=== PATIENT | female | born 1950 | race Caucasian/White ===

== ENCOUNTER → 2016-11-28 | Outpatient (REF) | payer MEDICARE, OTHER ==
[~2016-11-28] MED LIST: BIOT2500 PO; CENTTAB47 PO; COUM2.5T11 PO; FIBE625T PO; FLUTISP; GLUC750T22 PO; PERC5TAB6 PO; SIMV20TA2 PO; TRAM50TA2 PO; TYLE325T5 PO; VITA10006 PO
== END | disposition home or self-care (01) ==
LOC: M LAB REF 11:47
PROVIDERS: ATTEND Physician Assistant
DX: J02.9 Acute pharyngitis, unspecified (principal)

== ENCOUNTER → 2016-12-09 | Outpatient (REF) | payer MEDICARE, OTHER ==
[2016-12-11 09:03] LABS: THYROID PEROXIDASE ANTIBODY < 28.0 U/ML (<60.0)
== END | disposition home or self-care (01) ==
LOC: M LAB REF 16:36
PROVIDERS: ATTEND Nurse Practitioner Family
DX: E03.9 Hypothyroidism, unspecified (principal)

== ENCOUNTER → 2016-12-18 | Outpatient (CLI) | payer MEDICARE, OTHER ==
[2016-12-18 17:28] LABS: FREE T4 2.46 NG/DL (0.76-1.46)
== END | disposition home or self-care (01) ==
LOC: M LAB 16:14
PROVIDERS: ATTEND Physician Assistant Medical
DX: E03.9 Hypothyroidism, unspecified (principal)

== ENCOUNTER → 2016-12-23 | Outpatient (CLI) | payer MEDICARE, OTHER ==
--- NOTE | 2016-12-24 13:56 | REP ---
Radionuclide thyroid uptake and thyroid scan: Thyroid uptake: The two hour uptake is 1.33%. The 24 hour uptake is 0.38%. These values are markedly below the normal range . Normal range: 2 hours 6-12%, 24 hours, 25-35). Because of the markedly decreased thyroid uptake. Thyroid gland imaging is not possible. Signed by Km Sylvester MD 12/24/2016 01:47 P
== END | disposition home or self-care (01) ==
LOC: M RAD 12:20
PROVIDERS: ATTEND Physician Assistant Medical
DX: E05.00 Thyrotoxicosis with diffuse goiter without thyrotoxic crisis or storm (principal)
CPT/HCPCS: 78012; A9516

== ENCOUNTER → 2017-02-27 | Outpatient (REF) | payer MEDICARE, OTHER ==
[2017-02-27 13:08] LABS: CALCIUM LEVEL 8.6 MG/DL (8.8-10.2); FREE T4 0.87 NG/DL (0.76-1.46)
== END ==
LOC: M LABDRAW1 11:36
PROVIDERS: ATTEND Physician Assistant Medical
DX: M81.0 Age-related osteoporosis without current pathological fracture (principal); E06.0 Acute thyroiditis

== ENCOUNTER → 2017-03-18 | Outpatient (REF) | payer MEDICARE, OTHER | LOC: M LAB REF 16:09 | PROVIDERS: ATTEND Family Medicine | DX: R31.9 Hematuria, unspecified (principal) ==

== ENCOUNTER → 2017-04-11 | Outpatient (CLI) | payer MEDICARE, OTHER ==
[2017-04-11 11:03] LABS: ANION GAP 5 MEQ/L (8-16); BLOOD UREA NITROGEN 20 MG/DL (7-18); CALCIUM LEVEL 8.7 MG/DL (8.8-10.2); CARBON DIOXIDE LEVEL 32 MEQ/L (21-32); CHLORIDE LEVEL 104 MEQ/L (98-107); CREATININE FOR GFR 0.91 MG/DL (0.55-1.02); GLOMERULAR FILTRATION RATE > 60.0 (>45); GLUCOSE, FASTING 87 MG/DL (80-110); POTASSIUM SERUM 4.1 MEQ/L (3.5-5.1); SODIUM LEVEL 141 MEQ/L (136-145)
== END ==
LOC: M LAB 09:57
PROVIDERS: ATTEND Nurse Practitioner Family
DX: R31.9 Hematuria, unspecified (principal)

== ENCOUNTER → 2017-04-22 | Outpatient (CLI) | payer MEDICARE, OTHER ==
[~2017-04-22] MED LIST changes: +ISOVUE-370 76% 100ML VIAL (Q9967) As Ordered ONE
--- NOTE | 2017-04-22 16:49 | REP ---
CT ABDOMEN: REASON: Hematuria. CONTRAST: 100 mL Isovue-370 The precontrast enhanced portion of the examination shows hepatic and splenic densities to be within normal limits. There is no nephroureterolithiasis, hydronephrosis, or hydroureter. There are no urinary bladder calcifications, however, spray artifact arising from a left hip prosthesis obscures multiple pelvic images. Multiple pelvic surgical clips are seen on the right. The contrast enhanced portion shows the liver, gallbladder, spleen, pancreas, adrenal glands to be within normal limits. There are multiple bilateral nonenhancing simple renal cysts, some too small for precise CT characterization but none showing any form of septation or mural nodular enhancement. There is no free fluid or free in the abdomen or pelvis. The intraabdominal and intrapelvic bowel loops and their mesenteries are within normal limits. CT urography without MIP images show normal opacification of the ureters to the level of the sacroiliac joints where the contrast enhanced ureters ceased to be imaged. Contrast is seen filling the urinary bladder. The post contrast enhanced images show no evidence of hydronephrosis. There is malrotation of the right kidney. Bone window technique throughout the exam shows the osseous structures to be demineralized with spinal degenerative changes. There is a healing right inferior pubic ramus fracture and a healing left pubic symphysis fracture. Callus formation is seen involving the left inferior pubic ramus without a definitive lucency suggesting a healing stress fracture. There is evidence of a healing right acetabular and superior pubic ramus fracture. There is evidence of a healing bilateral sacral fracture, particularly affecting the sacralia. IMPRESSION: 1. Multiple bilateral renal cysts. 2. Nonvisualization of the ureters in total as described above but without evidence of an intraureteral filling defect or hydronephrosis. Consider further evaluation with retrograde ureterography if clinically relevant. 3. Multiple bilateral pelvic fractures which need clinical correlation and followup. 4. Exam limitations and other findings as described above. Signed by Alonso Allen DO 04/22/2017 06:03 P
== END ==
LOC: M RAD 13:36
PROVIDERS: ATTEND Nurse Practitioner Family
DX: R31.9 Hematuria, unspecified (principal); N28.1 Cyst of kidney, acquired; S32.591D Other specified fracture of right pubis, subsequent encounter for fracture with routine healing; S32.401D Unspecified fracture of right acetabulum, subsequent encounter for fracture with routine healing; S32.592D Other specified fracture of left pubis, subsequent encounter for fracture with routine healing; X58.XXXD Exposure to other specified factors, subsequent encounter; Y92.9 Unspecified place or not applicable; Y93.9 Activity, unspecified; Y99.9 Unspecified external cause status
CPT/HCPCS: 74178; Q9967

== ENCOUNTER → 2017-05-09 | Outpatient (REF) | payer MEDICARE, OTHER ==
[~2017-05-09] MED LIST changes: -ISOVUE-370 76% 100ML VIAL (Q9967) As Ordered ONE
[2017-05-09 11:11] LABS: FREE T4 0.93 NG/DL (0.76-1.46)
[2017-05-09 11:13] LABS: THYROID PEROXIDASE ANTIBODY 35.9 U/ML (<60.0)
== END ==
LOC: M LABDRAW1 10:23
PROVIDERS: ATTEND Internal Medicine Endocrinology, Diabetes & Metabolism
DX: E06.0 Acute thyroiditis (principal); M81.0 Age-related osteoporosis without current pathological fracture

== ENCOUNTER → 2017-08-15 | Outpatient (CLI) | payer MEDICARE, OTHER ==
[~2017-08-15] MED LIST changes: -COUM2.5T11 PO; +COUM2.5T17 PO; +PERC5TAB12 PO; -PERC5TAB6 PO
[2017-08-15 14:40] LABS: FREE T4 0.91 NG/DL (0.76-1.46)
== END ==
LOC: M LAB 13:16
PROVIDERS: ATTEND Internal Medicine Endocrinology, Diabetes & Metabolism
DX: E06.0 Acute thyroiditis (principal)

== ENCOUNTER → 2017-11-13 | Outpatient (CLI) | payer MEDICARE, OTHER ==
--- NOTE | 2017-11-13 16:45 | REPMRS ---
Patient History The patient states she has not had a clinical breast exam in over a year. Patient is nulliparous. Family history of breast cancer in paternal aunt under age 50 and premenopausal breast cancer in paternal grandmother at age 50 or over. 2 benign excisional biopsies of the right breast. Digital Woman Screen Mammo: November 13, 2017 - Exam #: [id number] Bilateral CC and MLO view(s) were taken. Technologist: Macey Hsu, Technologist Prior study comparison: November 14, 2016, digital woman screen mammo performed at [facility] [employer] [facility]. November 01, 2015, digital woman screen mammo performed at [facility] [employer] to [facility]. FINDINGS: The breast tissue is heterogeneously dense. This may lower the sensitivity of mammography. There has been no change in the appearance of the mammogram from the prior studies. There is a moderate amount of residual fibroglandular tissue which is fairly symmetric. There is no interval development of dominant mass, areas of architectural distortion, or clustered microcalcification typical of malignancy. ASSESSMENT: BI-RADS/ACR category 1 mammogram. Negative. Recommendation Routine screening mammogram in 1 year (for women over age 40). This mammogram was interpreted with the aid of an FDA-approved computer-aided dectection system. Electronically Signed By: Km Minor MD 11/13/17 [id number]
== END ==
LOC: M WHC 14:57
PROVIDERS: ATTEND Family Medicine
DX: Z12.31 Encounter for screening mammogram for malignant neoplasm of breast (principal); M81.0 Age-related osteoporosis without current pathological fracture
CPT/HCPCS: 36415; 82310; G0202

== ENCOUNTER → 2017-11-13 | Outpatient (REF) | payer MEDICARE, OTHER | LOC: M LABDRAW1 15:47 | PROVIDERS: ATTEND Internal Medicine Endocrinology, Diabetes & Metabolism | DX: M81.0 Age-related osteoporosis without current pathological fracture (principal) ==

== ENCOUNTER → 2018-03-10 | Outpatient (REF) | payer MEDICARE, OTHER | LOC: M LAB REF 12:02 | DX: Z01.89 Encounter for other specified special examinations (principal) | CPT/HCPCS: 86803 ==

== ENCOUNTER → 2018-05-26 | Outpatient (REF) | payer MEDICARE, OTHER ==
[2018-05-26 12:39] LABS: CALCIUM LEVEL 8.8 MG/DL (8.8-10.2)
[2018-05-26 12:39] LABS: FREE T4 0.92 NG/DL (0.76-1.46)
== END ==
LOC: M LABDRAW1 08:52
DX: M81.0 Age-related osteoporosis without current pathological fracture (principal); E04.2 Nontoxic multinodular goiter
CPT/HCPCS: 82310

== ENCOUNTER → 2018-11-09 | Outpatient (CLI) | payer MEDICARE, OTHER ==
--- NOTE | 2018-11-09 11:24 | REPMRS ---
Patient History The patient states she had a clinical breast exam in 03/11 Family history of premenopausal breast cancer at age 50 or over in paternal grandmother, breast cancer under age 50 in paternal aunt. 2 benign excisional biopsies of the right breast. Digital Woman Screen Mammo: November 09, 2018 - Exam #: [id number] Bilateral CC and MLO view(s) were taken. Technologist: Keesha Swan, Technologist Prior study comparison: November 13, 2017, digital woman screen mammo performed at [facility]. November 14, 2016, digital woman screen mammo performed at [facility]. November 01, 2015, digital woman screen mammo performed at [facility]. FINDINGS: The breast tissue is heterogeneously dense. This may lower the sensitivity of mammography. There is a moderate amount of heterogeneously dense fibroglandular tissue which is fairly symmetric. There is no interval development of dominant mass, architectural distortion, or clustered microcalcification typical of malignancy. There has been no change in the appearance of the mammogram from the prior studies. 3-D tomosynthesis shows no additional findings. Assessment: BI-RADS/ACR category 1 mammogram. Negative. Recommendation Routine screening mammogram of both breasts in 1 year (for women over age 40). This patient's Lifetime Breast Cancer RIsk is estimated at 11.3 %. This mammogram was interpreted with the aid of an FDA-approved computer-aided dectection system. Electronically Signed By: Alban Lopez MD 11/09/18 [id number]
== END ==
LOC: M WHC 08:49
PROVIDERS: ATTEND Family Medicine
DX: Z12.31 Encounter for screening mammogram for malignant neoplasm of breast (principal); Z80.3 Family history of malignant neoplasm of breast; Z86.018 Personal history of other benign neoplasm

== ENCOUNTER → 2018-12-02 | Outpatient (REF) | payer MEDICARE, OTHER | LOC: M LABDRAW1 15:26 | PROVIDERS: ATTEND Internal Medicine Endocrinology, Diabetes & Metabolism | DX: M81.0 Age-related osteoporosis without current pathological fracture (principal) ==

== ENCOUNTER → 2019-04-14 | Outpatient (REF) | payer MEDICARE, OTHER ==
[~2019-04-14] MED LIST changes: +FLUT50SP12; -FLUTISP
== END ==
LOC: M LAB REF 13:05
PROVIDERS: ATTEND Nurse Practitioner Family
DX: R59.0 Localized enlarged lymph nodes (principal)

== ENCOUNTER → 2019-04-28 | Outpatient (REF) | payer MEDICARE, OTHER ==
[2019-04-28 13:21] LABS: BACTERIA, URINE AUTO NEGATIVE (NEGATIVE); MUCUS, URINE SMALL (NEGATIVE); RBC, URINE AUTO 140 /HPF (0-3); SQUAMOUS EPITHELIAL CELL UR AU 0 /HPF (0-6); WBC, URINE AUTO 3 /HPF (0-3)
== END ==
LOC: M LAB REF 12:53
PROVIDERS: ATTEND Nurse Practitioner Family
DX: R31.9 Hematuria, unspecified (principal)

== ENCOUNTER → 2019-05-12 | Outpatient (REF) | payer MEDICARE, OTHER ==
[2019-05-12 14:18] LABS: APPEARANCE, URINE CLEAR (CLEAR); BACTERIA, URINE AUTO NEGATIVE (NEGATIVE); BILIRUBIN, URINE AUTO NEGATIVE (NEGATIVE); BLOOD, URINE BLOOD 1+ (NEGATIVE); COLOR, URINE YELLOW (YELLOW); GLUCOSE, URINE (UA) AUTO NEGATIVE (NEGATIVE); KETONE, URINE AUTO NEGATIVE (NEGATIVE); LEUKOCYTE ESTERASE, URINE AUTO TRACE (NEGATIVE); NITRITE, URINE AUTO NEGATIVE (NEGATIVE); PROTEIN, URINE AUTO NEGATIVE (NEGATIVE); RBC, URINE AUTO 2 /HPF (0-3); SPECIFIC GRAVITY URINE AUTO 1.014 (1.002-1.035); SQUAMOUS EPITHELIAL CELL UR AU 0 /HPF (0-6); UROBILINOGEN, URINE AUTO 0.2 mg/dL (0.0-2.0); WBC, URINE AUTO 1 /HPF (0-3)
== END ==
LOC: M SMT 13:11
PROVIDERS: ATTEND Nurse Practitioner Family
DX: R31.29 Other microscopic hematuria (principal)
CPT/HCPCS: 81001; 87086; 88108; G0463

== ENCOUNTER → 2019-05-18 | Outpatient (CLI) | payer MEDICARE, OTHER ==
[2019-05-18 13:42] LABS: BLOOD UREA NITROGEN 26 MG/DL (7-18); CALCIUM LEVEL 9.4 MG/DL (8.8-10.2); CARBON DIOXIDE LEVEL 31 MEQ/L (21-32); CHLORIDE LEVEL 106 MEQ/L (98-107); CREATININE FOR GFR 0.85 MG/DL (0.55-1.30); GLOMERULAR FILTRATION RATE > 60.0 (>39); GLUCOSE, FASTING 83 MG/DL (70-100); SODIUM LEVEL 140 MEQ/L (136-145)
== END ==
LOC: M SMT 09:15
PROVIDERS: ATTEND Nurse Practitioner Family
DX: R31.9 Hematuria, unspecified (principal)

== ENCOUNTER → 2019-05-21 | Outpatient (CLI) | payer MEDICARE, OTHER ==
[~2019-05-21] MED LIST changes: +ISOVUE-370 76% 100ML VIAL (Q9967) As Ordered ONE
--- NOTE | 2019-05-21 12:30 | REP ---
Clinical: Hematuria. Technique: Axial precontrast, contrast enhanced, and delayed images of the abdomen and pelvis using 100 ml Isovue 370 intravenous contrast material with coronal and sagittal re-formations. Comparison: 04/22/2017. Findings: Kidneys demonstrate mild age-related cortical thinning along with simple and benign appearing proteinaceous cysts. No nephroureterolithiasis, hydroureteronephrosis, or perinephric stranding is appreciated. No obvious renal mass lesion identified. Enhanced images demonstrate symmetric renal parenchymal enhancement and symmetric excretion to the collecting system. The bladder is grossly unremarkable although somewhat limited in evaluation due to beam-hardening artifact from left hip replacement. Liver, spleen, pancreas, gallbladder, and bilateral adrenal glands are normal. The enteric system is without obstruction or acute inflammatory process. Colonic diverticula noted without acute diverticulitis. No obvious ascites. No free air. No adenopathy. Abdominal aorta without aneurysm or dissection. Musculoskeletal structures demonstrate degenerative changes and left hip replacement. Lung bases are clear. Impression: 1. Bilateral simple and benign appearing proteinaceous renal cysts without further obvious urinary tract pathology. However, evaluation of the bladder is limited due to beam-hardening artifact from left hip prosthesis and if necessary cystoscopy should be considered. 2. Scattered colonic diverticula. 3. No further acute abdominopelvic pathology appreciated. Electronically Signed by Luis Gómez MD 05/21/2019 12:21 P
== END ==
LOC: M RAD 10:51
PROVIDERS: ATTEND Nurse Practitioner Family
DX: R31.9 Hematuria, unspecified (principal)
CPT/HCPCS: 74178; Q9967

== ENCOUNTER → 2019-05-31 | Outpatient (REF) | payer MEDICARE, OTHER ==
[~2019-05-31] MED LIST changes: -ISOVUE-370 76% 100ML VIAL (Q9967) As Ordered ONE
== END ==
LOC: M SMT 13:02
PROVIDERS: ATTEND Urology
DX: R31.0 Gross hematuria (principal)

== ENCOUNTER → 2019-06-02 | Outpatient (REF) | payer MEDICARE, OTHER ==
[2019-06-02 11:59] LABS: CALCIUM LEVEL 8.8 MG/DL (8.8-10.2)
[2019-06-02 12:15] LABS: TOTAL 25(OH) VITAMIN D 50.6 NG/ML (30.0-100.0)
== END ==
LOC: M LABDRAW1 08:51
PROVIDERS: ATTEND Nurse Practitioner Family
DX: M81.0 Age-related osteoporosis without current pathological fracture (principal)

== ENCOUNTER → 2019-11-10 | Outpatient (CLI) | payer MEDICARE, OTHER ==
[~2019-11-10] MED LIST changes: -SIMV20TA2 PO; +SIMV20TA22 PO
--- NOTE | 2019-11-10 11:04 | REPMRS ---
Patient History The patient states she had a clinical breast exam in October 2019.Family history of premenopausal breast cancer at age 50 or over in paternal grandmother, breast cancer under age 50 in paternal aunt. 2 benign excisional biopsies of the right breast. Digital Woman Screen Mammo: November 10, 2019 - Exam #: [id number] Bilateral CC and MLO view(s) were taken. Technologist: Lauryn Santa, Technologist Prior study comparison: November 09, 2018, bilateral digital woman screen mammo performed at [facility]. November 13, 2017, digital woman screen mammo performed at [facility]. November 14, 2016, digital woman screen mammo performed at [facility]. FINDINGS: The breast tissue is heterogeneously dense. This may lower the sensitivity of mammography. There is a moderate amount of heterogeneously dense fibroglandular tissue which is fairly symmetric. There is no interval development of dominant mass, architectural distortion, or grouped microcalcification typical of malignancy. There has been no change in the appearance of the mammogram from the prior studies. 3-D tomosynthesis shows no additional findings. Assessment: BI-RADS/ACR category 1 mammogram. Negative Mammogram. Recommendation Routine screening mammogram of both breasts in 1 year (for women over age 40). This patient's Lifetime Breast Cancer RIsk is estimated at 10.7 %. This mammogram was interpreted with the aid of an FDA-approved computer-aided dectection system. Electronically Signed By: Alban Lopez MD 11/10/19 [id number]
== END ==
LOC: M WHC 09:01
PROVIDERS: ADMIT Orthopaedic Surgery; ATTEND Family Medicine
DX: Z12.31 Encounter for screening mammogram for malignant neoplasm of breast (principal)

== ENCOUNTER → 2019-12-06 | Outpatient (REF) | payer MEDICARE, OTHER ==
[2019-12-06 12:20] LABS: CALCIUM LEVEL 9.4 MG/DL (8.8-10.2); FREE T4 1.17 NG/DL (0.76-1.46); THYROID STIMULATING HORMONE 2.03 uIU/ML (0.358-3.740)
== END ==
LOC: M LABDRAW1 11:44
PROVIDERS: ATTEND Nurse Practitioner Family
DX: M81.0 Age-related osteoporosis without current pathological fracture (principal); E04.2 Nontoxic multinodular goiter

== ENCOUNTER → 2020-06-06 | Outpatient (CLI) | payer MEDICARE, OTHER ==
[2020-06-06 15:46] LABS: CALCIUM LEVEL 9.1 MG/DL (8.8-10.2)
[2020-06-06 16:03] LABS: TOTAL 25(OH) VITAMIN D 45.4 NG/ML (30.0-100.0)
== END ==
LOC: M PLALAB 13:30
PROVIDERS: ATTEND Internal Medicine Endocrinology, Diabetes & Metabolism
DX: E55.9 Vitamin D deficiency, unspecified (principal); Z79.01 Long term (current) use of anticoagulants; Z79.899 Other long term (current) drug therapy

== ENCOUNTER → 2020-11-13 | Outpatient (CLI) | payer MEDICARE, OTHER ==
--- NOTE | 2020-11-13 10:19 | REPMRS ---
Patient History The patient states she has not had a clinical breast exam in over a year. Family history of premenopausal breast cancer at age 50 or over in paternal grandmother, breast cancer under age 50 in paternal aunt. 2 benign excisional biopsies of the right breast. 3D TOMOSYNTHESIS WAS PERFORMED. The [facility] lifetime risk for breast cancer is 10.1%. Volpara breast density c. Digital Woman Screen Mammo: November 13, 2020 - Exam #: [id number] Bilateral CC and MLO view(s) were taken. Technologist: Claudia Whelan, Technologist Prior study comparison: November 10, 2019, bilateral digital woman screen mammo performed at [facility]. November 09, 2018, bilateral digital woman screen mammo performed at [facility]. FINDINGS: The breast tissue is heterogeneously dense. This may lower the sensitivity of mammography. There has been no change in the appearance of the mammogram from the prior studies. There is a moderate amount of residual fibroglandular tissue which is fairly symmetric. There is no interval development of dominant mass, areas of architectural distortion, or clustered microcalcification typical of malignancy. Assessment: BI-RADS/ACR category 1 mammogram. Negative Mammogram. Recommendation Routine screening mammogram in 1 year (for women over age 40). This mammogram was interpreted with the aid of an FDA-approved computer-aided dectection system. Electronically Signed By: Km Minor MD 11/13/20 [id number]
== END ==
LOC: M WHC 08:55
PROVIDERS: ATTEND Family Medicine
DX: Z12.31 Encounter for screening mammogram for malignant neoplasm of breast (principal)

== ENCOUNTER → 2020-11-14 | Outpatient (CLI) | payer SELFPAY | LOC: M LABSMTC 09:46 | PROVIDERS: ATTEND Pediatrics | DX: Z20.828 Contact with and (suspected) exposure to other viral communicable diseases (principal) ==

== ENCOUNTER → 2020-12-06 | Outpatient (REF) | payer MEDICARE, OTHER | LOC: M LAB REF 19:11 | PROVIDERS: ATTEND Physician Assistant | DX: R30.0 Dysuria (principal) ==

== ENCOUNTER → 2020-12-13 | Outpatient (CLI) | payer MEDICARE, OTHER | LOC: M PLALAB 14:55 | PROVIDERS: ATTEND Internal Medicine Endocrinology, Diabetes & Metabolism | DX: M81.0 Age-related osteoporosis without current pathological fracture (principal) ==

== ENCOUNTER → 2021-06-12 | Outpatient (CLI) | payer MEDICARE, OTHER | LOC: M PLALAB 13:39 | PROVIDERS: ATTEND Internal Medicine Endocrinology, Diabetes & Metabolism | DX: E55.9 Vitamin D deficiency, unspecified (principal) ==

== ENCOUNTER → 2021-06-18 | Outpatient (CLI) | payer MEDICARE, OTHER | LOC: M LAB 10:07 | PROVIDERS: ATTEND Internal Medicine Endocrinology, Diabetes & Metabolism | DX: M81.0 Age-related osteoporosis without current pathological fracture (principal) ==

== ENCOUNTER → 2021-07-04 | Outpatient (REF) | payer MEDICARE, OTHER | LOC: M LAB REF 11:17 | PROVIDERS: ATTEND Family Medicine | DX: N39.0 Urinary tract infection, site not specified (principal) ==

== ENCOUNTER → 2021-11-14 | Outpatient (CLI) | payer MEDICARE, OTHER | LOC: M WHC 10:43 | PROVIDERS: ATTEND Family Medicine | DX: Z12.31 Encounter for screening mammogram for malignant neoplasm of breast (principal); Z80.3 Family history of malignant neoplasm of breast ==

== ENCOUNTER → 2021-12-14 | Outpatient (CLI) | payer MEDICARE, OTHER ==
[2021-12-14 17:46] LABS: CALCIUM LEVEL 9.2 MG/DL (8.8-10.2); THYROID STIMULATING HORMONE 1.44 uIU/ML (0.358-3.740)
== END ==
LOC: M PLALAB 15:11
PROVIDERS: ATTEND Internal Medicine Endocrinology, Diabetes & Metabolism
DX: M81.0 Age-related osteoporosis without current pathological fracture (principal); E04.2 Nontoxic multinodular goiter

== ENCOUNTER → 2021-12-14 | Outpatient (REF) | LOC: M LABSMTC 09:18 | PROVIDERS: ATTEND Pediatrics | DX: Z11.52 Encounter for screening for COVID-19 (principal) ==

== ENCOUNTER → 2022-03-27 | Outpatient (CLI) | payer MEDICARE, OTHER | LOC: M LAB 13:31 | PROVIDERS: ATTEND Ophthalmology | DX: M31.6 Other giant cell arteritis (principal) ==

== ENCOUNTER → 2022-06-14 | Outpatient (CLI) | payer MEDICARE, OTHER | LOC: M PLALAB 10:56 | PROVIDERS: ATTEND Internal Medicine Endocrinology, Diabetes & Metabolism | DX: M81.0 Age-related osteoporosis without current pathological fracture (principal); Z79.899 Other long term (current) drug therapy ==

== ENCOUNTER → 2022-06-28 | Outpatient (CLI) | payer MEDICARE, OTHER | LOC: M PLALAB 08:28 | PROVIDERS: ATTEND Internal Medicine | DX: M81.0 Age-related osteoporosis without current pathological fracture (principal) ==

== ENCOUNTER → 2022-08-12 | Outpatient (CLI) | payer MEDICARE, OTHER | LOC: M WHC 12:39 | PROVIDERS: ATTEND Nurse Practitioner Family | DX: M81.0 Age-related osteoporosis without current pathological fracture (principal) ==

== ENCOUNTER → 2022-10-29 | Outpatient (CLI) | payer MEDICARE, OTHER | LOC: M WHC 09:55 | PROVIDERS: ATTEND Family Medicine | DX: Z12.31 Encounter for screening mammogram for malignant neoplasm of breast (principal) ==

== ENCOUNTER → 2022-11-12 | Outpatient (REF) | payer MEDICARE, OTHER | LOC: M SFHCDERM 16:40 | PROVIDERS: ATTEND Nurse Practitioner Family | DX: L50.0 Allergic urticaria (principal) ==

== ENCOUNTER → 2023-09-09 | Outpatient (REF) | payer MEDICARE, OTHER ==
[2023-09-09 18:04] LABS: VITAMIN B12 LEVEL 339 PG/ML (211-911)
[2023-09-09 18:08] LABS: APPEARANCE, URINE CLOUDY (CLEAR); BACTERIA, URINE AUTO NEGATIVE (NEGATIVE); BILIRUBIN, URINE AUTO NEGATIVE (NEGATIVE); BLOOD, URINE BLOOD 1+ (NEGATIVE); COLOR, URINE YELLOW (YELLOW); GLUCOSE, URINE (UA) AUTO NEGATIVE (NEGATIVE); KETONE, URINE AUTO TRACE mg/dL (NEGATIVE); LEUKOCYTE ESTERASE, URINE AUTO TRACE (NEGATIVE); MUCUS, URINE SMALL (NEGATIVE); NITRITE, URINE AUTO NEGATIVE (NEGATIVE); PROTEIN, URINE AUTO 1+ mg/dL (NEGATIVE); RBC, URINE AUTO 107 /HPF (0-3); SQUAMOUS EPITHELIAL CELL UR AU 0 /HPF (0-6); URIC ACID CRYSTALS LARGE; WBC, URINE AUTO 45 /HPF (0-3)
== END ==
LOC: M LAB REF 16:06
PROVIDERS: ATTEND Family Medicine
DX: R41.3 Other amnesia (principal)

== ENCOUNTER 2023-09-16 11:37 | Inpatient (IN) | payer MEDICARE, OTHER ==
[~2023-09-16] VITALS: Ht 152.4 cm; Wt 43.0 kg
[2023-09-16 13:21] LABS: INR 0.97; PROTHROMBIN TIME 12.6 SECONDS (12.5-14.5)
[2023-09-16 13:22] LABS: PARTIAL THROMBOPLASTIN TIME 21.3 SECONDS (24.8-34.2)
[2023-09-16 13:36] LABS: RSV AMPLIFICATION NEGATIVE (NEGATIVE)
[2023-09-16 14:34] LABS: CPK CREATINE PHOSPHOKINASE 38 U/L (34-145)
[2023-09-16 14:35] LABS: ALKALINE PHOSPHATASE 89 U/L (46-116); ALT/SGPT 10 U/L (7.0-40); AST/SGOT 17 U/L (<34); BILIRUBIN,DIRECT 0.2 MG/DL (<0.4); BILIRUBIN,TOTAL 0.7 MG/DL (0.3-1.2); BLOOD UREA NITROGEN 12 MG/DL (9-23); CALCIUM LEVEL 9.2 MG/DL (8.3-10.6); CARBON DIOXIDE LEVEL 27 MMOL/L (20-31); CHLORIDE LEVEL 106 MMOL/L (98-107); CK-MB VALUE MASS < 1.0 NG/ML (<3.6); CREATININE FOR GFR 0.86 MG/DL (0.55-1.30); GLOMERULAR FILTRATION RATE > 60.0 (>39); GLUCOSE, FASTING 78 MG/DL (74-106); MB/CK RELATIVE INDEX 2.63 (< OR =4); POTASSIUM SERUM 3.8 MMOL/L (3.5-5.1); SODIUM LEVEL 142 MMOL/L (136-145); TOTAL PROTEIN 5.6 G/DL (5.7-8.2)
[2023-09-16 15:19] LABS: BASO # 0.1 10^3/uL (0.0-0.2); BASO % 0.7 % (0.0-1.0); EOS # 0.1 10^3/uL (0.0-0.5); EOS % 1.6 % (0.0-3.0); HEMATOCRIT 37.4 % (36.0-47.0); HEMOGLOBIN 12.2 g/dl (12.0-15.5); LYMPH # 1.2 10^3/uL (1.5-5.0); MEAN CORPUSCULAR HEMOGLOBIN 31.7 pg (27.0-33.0); MEAN CORPUSCULAR HGB CONC 32.6 g/dl (32.0-36.5); MEAN CORPUSCULAR VOLUME 97.1 fl (80.0-96.0); MONO # 0.5 10^3/uL (0.0-0.8); MONO % 6.6 % (2.0-8.0); NEUTROPHILS # 5.4 10^3/uL (1.5-8.5); NEUTROPHILS % 73.7 % (36.0-66.0); PLATELET COUNT, AUTOMATED 377 10^3/uL (150-450); RED BLOOD COUNT 3.85 10^6/uL (4.00-5.40); WHITE BLOOD COUNT 7.3 10^3/uL (4.0-10.0)
[2023-09-16] MEDS ORDERED: MED REC IN PROGRESS XX SCH (16:00)
[2023-09-16] MEDS ORDERED: ASPIRIN 325 MG TAB PO ONE (16:20)
[2023-09-16] MEDS ORDERED: ATORVASTATIN 20 MG TAB PO ONE (16:20)
[2023-09-16] MEDS ORDERED: ASPI81TA26 PO (16:22)
[2023-09-16] MEDS ORDERED: HOME MED LIST COMPLETE! XX SCH (16:25)
[2023-09-16] MEDS ORDERED: ISOVUE-370 76% 100ML VIAL As Ordered ONE (16:44)
[2023-09-16 18:08] LABS: HEMOGLOBIN A1c 5.2 % (4.0-6.0)
[2023-09-16 18:46] VITALS: BP 136/65; TEMP 97.4; O2SAT 98
[2023-09-16 19:53] VITALS: BP 126/66; TEMP 98.1; O2SAT 100
[2023-09-16 23:07] VITALS: BP 106/55; TEMP 98.4; O2SAT 99
[2023-09-16 23:09] VITALS: BP 106/55; TEMP 97.6; O2SAT 99
[2023-09-17] VITALS (7 sets, daily range): BP systolic 117–149; BP diastolic 56–90; TEMP 97.3–98; O2SAT 93–99
[2023-09-17 05:04] LABS: HEMATOCRIT 36.6 % (36.0-47.0); HEMOGLOBIN 11.9 g/dl (12.0-15.5); MEAN CORPUSCULAR HEMOGLOBIN 31.2 pg (27.0-33.0); MEAN CORPUSCULAR HGB CONC 32.5 g/dl (32.0-36.5); MEAN CORPUSCULAR VOLUME 96.1 fl (80.0-96.0); PLATELET COUNT, AUTOMATED 351 10^3/uL (150-450); RED BLOOD COUNT 3.81 10^6/uL (4.00-5.40); WHITE BLOOD COUNT 7.3 10^3/uL (4.0-10.0)
[2023-09-17 05:24] LABS: BLOOD UREA NITROGEN 17 MG/DL (9-23); CALCIUM LEVEL 8.6 MG/DL (8.3-10.6); CARBON DIOXIDE LEVEL 28 MMOL/L (20-31); CHLORIDE LEVEL 107 MMOL/L (98-107); CHOLESTEROL LEVEL 182 MG/DL (<200); CHOLESTEROL RISK RATIO 4.86 (<5); CREATININE FOR GFR 0.87 MG/DL (0.55-1.30); GLOMERULAR FILTRATION RATE > 60.0 (>39); GLUCOSE, FASTING 80 MG/DL (74-106); HDL CHOLESTEROL 37.4 MG/DL (>40); LDL CHOLESTEROL 127.8 MG/DL (<100); NON-HDL-C 144.6 MG/DL; POTASSIUM SERUM 3.7 MMOL/L (3.5-5.1); SODIUM LEVEL 141 MMOL/L (136-145); TRIGLYCERIDES LEVEL 84 MG/DL (<150)
[2023-09-17] MEDS ORDERED: ASPIRIN 81MG CHEW TABLET PO ONE (08:00)
[2023-09-17] MEDS: ATORVASTATIN 20 MG TAB PO SCH (09:56)
[2023-09-17] MEDS: ENOXAPARIN 40MG/0.4ML SYRINGE (J1650 PER 10MG) SC SCH (09:56)
[2023-09-18] VITALS: BP 122/58; TEMP 97.4; O2SAT 99
[2023-09-18 04:37] VITALS: BP 151/65; TEMP 97.8; O2SAT 99
[2023-09-18 05:02] LABS: HEMATOCRIT 36.8 % (36.0-47.0); HEMOGLOBIN 12.1 g/dl (12.0-15.5); MEAN CORPUSCULAR HEMOGLOBIN 31.3 pg (27.0-33.0); MEAN CORPUSCULAR HGB CONC 32.9 g/dl (32.0-36.5); MEAN CORPUSCULAR VOLUME 95.3 fl (80.0-96.0); PLATELET COUNT, AUTOMATED 336 10^3/uL (150-450); RED BLOOD COUNT 3.86 10^6/uL (4.00-5.40); WHITE BLOOD COUNT 5.8 10^3/uL (4.0-10.0)
[2023-09-18 05:24] LABS: BLOOD UREA NITROGEN 16 MG/DL (9-23); CALCIUM LEVEL 8.8 MG/DL (8.3-10.6); CARBON DIOXIDE LEVEL 28 MMOL/L (20-31); CHLORIDE LEVEL 109 MMOL/L (98-107); CREATININE FOR GFR 0.93 MG/DL (0.55-1.30); GLOMERULAR FILTRATION RATE > 60.0 (>39); GLUCOSE, FASTING 90 MG/DL (74-106); SODIUM LEVEL 144 MMOL/L (136-145)
[2023-09-18 05:26] LABS: VITAMIN B12 LEVEL 348 PG/ML (211-911)
[2023-09-18 05:27] LABS: FOLATE 9.89 NG/ML (>5.4)
[2023-09-18 08:14] VITALS: BP 107/60; TEMP 97.3; O2SAT 98
[2023-09-18] MEDS: ATORVASTATIN 20 MG TAB PO SCH ×2 (09:56→09:57)
[2023-09-18] MEDS: ENOXAPARIN 40MG/0.4ML SYRINGE (J1650 PER 10MG) SC SCH ×2 (09:56→09:57)
[2023-09-18 12:06] VITALS: BP 138/65; TEMP 97.6; O2SAT 98
[2023-09-18 16:14] VITALS: BP 121/56; TEMP 98.3; O2SAT 98
[2023-09-18 19:21] VITALS: BP 106/56; TEMP 98.6; O2SAT 99
[2023-09-19 08:00] VITALS: BP 124/59; TEMP 98.6; O2SAT 100
[2023-09-19] MEDS: ATORVASTATIN 20 MG TAB PO SCH (09:15)
[2023-09-19] MEDS: ENOXAPARIN 40MG/0.4ML SYRINGE (J1650 PER 10MG) SC SCH (09:15)
[2023-09-19 12:50] VITALS: BP 99/58; TEMP 98.4; O2SAT 98
[2023-09-19 16:00] VITALS: BP 114/65; TEMP 98.6; O2SAT 99
[2023-09-20 05:15] VITALS: BP 135/59; TEMP 97.3; O2SAT 99
[2023-09-20] MEDS: EZETIMIBE 10MG TABLET (ZETIA) PO SCH (08:24)
[2023-09-20] MEDS: ENOXAPARIN 40MG/0.4ML SYRINGE (J1650 PER 10MG) SC SCH (08:25)
[2023-09-21 05:00] VITALS: BP 125/78; TEMP 97.9; O2SAT 97
[2023-09-21] MEDS: ENOXAPARIN 40MG/0.4ML SYRINGE (J1650 PER 10MG) SC SCH (08:08)
[2023-09-21] MEDS: EZETIMIBE 10MG TABLET (ZETIA) PO SCH (08:08)
[2023-09-22 04:30] VITALS: BP 126/75; TEMP 98.4; O2SAT 97
[2023-09-22 07:02] LABS: HEMATOCRIT 35.8 % (36.0-47.0); HEMOGLOBIN 11.5 g/dl (12.0-15.5); MEAN CORPUSCULAR HEMOGLOBIN 31.2 pg (27.0-33.0); MEAN CORPUSCULAR HGB CONC 32.1 g/dl (32.0-36.5); PLATELET COUNT, AUTOMATED 317 10^3/uL (150-450); RED BLOOD COUNT 3.69 10^6/uL (4.00-5.40); WHITE BLOOD COUNT 7.8 10^3/uL (4.0-10.0)
[2023-09-22] MEDS: EZETIMIBE 10MG TABLET (ZETIA) PO SCH (08:18)
[2023-09-22] MEDS: ENOXAPARIN 40MG/0.4ML SYRINGE (J1650 PER 10MG) SC SCH (08:18)
[2023-09-23 06:00] VITALS: BP 127/74; TEMP 97.7; O2SAT 95
[2023-09-23 08:00] VITALS: BP 120/71; TEMP 97.5; O2SAT 96
[2023-09-23] MEDS: EZETIMIBE 10MG TABLET (ZETIA) PO SCH (08:34)
[2023-09-23] MEDS: ENOXAPARIN 40MG/0.4ML SYRINGE (J1650 PER 10MG) SC SCH (08:35)
[2023-09-23] MEDS: ASPIRIN 81MG ENTERIC TABLET PO SCH (12:35)
[2023-09-24 06:00] VITALS: BP 125/68; TEMP 97.9; O2SAT 97
[2023-09-24] MEDS: EZETIMIBE 10MG TABLET (ZETIA) PO SCH (08:22)
[2023-09-24] MEDS: ENOXAPARIN 40MG/0.4ML SYRINGE (J1650 PER 10MG) SC SCH (08:22)
[2023-09-24] MEDS: ASPIRIN 81MG ENTERIC TABLET PO SCH (08:22)
[2023-09-24 08:23] VITALS: BP 126/67
[2023-09-24] MEDS ORDERED: EZET10TA21 PO (08:36)
== END 2023-09-24 15:44 | disposition home or self-care (01) | DRG 65 ==
LOC: M ED 11:37 → M ED INP 16:17 → M PCU 18:46 → M MSPAV 09-19 15:50
PROVIDERS: ADMIT Internal Medicine; ATTEND Internal Medicine
PROC: B246ZZZ Ultrasonography of Right and Left Heart (ICD-10-PCS; principal; 2023-09-18)
DX: I63.9 Cerebral infarction, unspecified (principal); Z68.1 Body mass index [BMI] 19.9 or less, adult; F01.50 Vascular dementia, unspecified severity, without behavioral disturbance, psychotic disturbance, mood disturbance, and anxiety; Z74.1 Need for assistance with personal care; Z66 Do not resuscitate; Z79.82 Long term (current) use of aspirin; R63.6 Underweight

== ENCOUNTER → 2023-10-30 | Outpatient (CLI) | payer MEDICARE, OTHER ==
[~2023-10-30] MED LIST changes: +ASPI81TA26 PO; +EZET10TA21 PO
== END ==
LOC: M WHC 09:29
PROVIDERS: ATTEND Family Medicine
DX: Z12.31 Encounter for screening mammogram for malignant neoplasm of breast (principal)

== ENCOUNTER → 2024-02-18 | Outpatient (CLI) | payer MEDICARE | LOC: M RAD 12:09 | PROVIDERS: ATTEND Nurse Practitioner Family | DX: I89.0 Lymphedema, not elsewhere classified (principal) ==

== ENCOUNTER → 2024-05-03 | Outpatient (REF) | payer MEDICARE | LOC: M LAB REF 17:26 | PROVIDERS: ATTEND Family Medicine | DX: R41.3 Other amnesia (principal); E53.8 Deficiency of other specified B group vitamins ==

== ENCOUNTER 2024-05-29 18:20 | Emergency (ER) | payer MEDICARE ==
[2024-05-29 18:45] LABS: BASO # 0.1 10^3/uL (0.0-0.2); BASO % 0.4 % (0.0-1.0); EOS % 0.1 % (0.0-3.0); HEMATOCRIT 36.8 % (36.0-47.0); HEMOGLOBIN 12.1 g/dl (12.0-15.5); LYMPH # 0.8 10^3/uL (1.5-5.0); LYMPH % 7.3 % (24.0-44.0); MEAN CORPUSCULAR HEMOGLOBIN 32.2 pg (27.0-33.0); MEAN CORPUSCULAR HGB CONC 32.9 g/dl (32.0-36.5); MEAN CORPUSCULAR VOLUME 97.9 fl (80.0-96.0); MONO # 0.5 10^3/uL (0.0-0.8); MONO % 4.5 % (2.0-8.0); NEUTROPHILS # 10.1 10^3/uL (1.5-8.5); NEUTROPHILS % 87.4 % (36.0-66.0); PLATELET COUNT, AUTOMATED 222 10^3/uL (150-450); RED BLOOD COUNT 3.76 10^6/uL (4.00-5.40); WHITE BLOOD COUNT 11.6 10^3/uL (4.0-10.0)
[2024-05-29] MEDS: NS 1,000 ML IV SCH (19:05)
[2024-05-29 19:11] LABS: CALCIUM LEVEL 8.9 MG/DL (8.3-10.6); CREATININE FOR GFR 1.02 MG/DL (0.55-1.30); GLOMERULAR FILTRATION RATE 56.1 (>39); POTASSIUM SERUM 4.2 MMOL/L (3.5-5.1)
[2024-05-29 21:15] VITALS: BP 144/68; TEMP 98.5; O2SAT 97
== END 2024-05-29 21:53 | disposition home or self-care (01) ==
LOC: M ED 18:20 → EDBD 18:20 → M ED 21:53
DX: E86.0 Dehydration (principal); E78.5 Hyperlipidemia, unspecified; Z88.1 Allergy status to other antibiotic agents; Z88.8 Allergy status to other drugs, medicaments and biological substances; Z79.1 Long term (current) use of non-steroidal anti-inflammatories (NSAID); Z79.899 Other long term (current) drug therapy

== ENCOUNTER → 2025-02-14 | Outpatient (REF) | payer MEDICARE | LOC: M LAB REF 16:43 | PROVIDERS: ATTEND Nurse Practitioner Family | DX: F03.90 Unspecified dementia, unspecified severity, without behavioral disturbance, psychotic disturbance, mood disturbance, and anxiety (principal); R53.83 Other fatigue ==

== ENCOUNTER → 2025-06-14 | Outpatient (REF) | payer MEDICARE | LOC: M LAB REF 16:56 | PROVIDERS: ATTEND Family Medicine | DX: F03.90 Unspecified dementia, unspecified severity, without behavioral disturbance, psychotic disturbance, mood disturbance, and anxiety (principal) ==

== ENCOUNTER → 2025-07-20 | Outpatient (REF) | payer MEDICARE ==
[2025-07-20 20:07] LABS: APPEARANCE, URINE CLEAR (CLEAR); BACTERIA, URINE AUTO NEGATIVE (NEGATIVE); BILIRUBIN, URINE AUTO NEGATIVE (NEGATIVE); BLOOD, URINE BLOOD NEGATIVE (NEGATIVE); GLUCOSE, URINE (UA) AUTO NEGATIVE (NEGATIVE); KETONE, URINE AUTO NEGATIVE (NEGATIVE); LEUKOCYTE ESTERASE, URINE AUTO NEGATIVE (NEGATIVE); NITRITE, URINE AUTO NEGATIVE (NEGATIVE); PROTEIN, URINE AUTO NEGATIVE (NEGATIVE); RBC, URINE AUTO 0 /HPF (0-3); SPECIFIC GRAVITY URINE AUTO 1.000 (1.002-1.035); SQUAMOUS EPITHELIAL CELL UR AU 0 /HPF (0-6); UROBILINOGEN, URINE AUTO 0.2 mg/dL (0.0-2.0); WBC, URINE AUTO 0 /HPF (0-3)
== END ==
LOC: M LAB REF 19:26
PROVIDERS: ATTEND Physician Assistant
DX: N39.0 Urinary tract infection, site not specified (principal)

== ENCOUNTER → 2025-08-22 | Outpatient (REF) | payer MEDICARE ==
[~2025-08-22] MED LIST changes: -EZET10TA21 PO; +EZET10TA57 PO
[2025-08-22 18:04] LABS: APPEARANCE, URINE CLOUDY (CLEAR); BACTERIA, URINE AUTO NEGATIVE (NEGATIVE); BILIRUBIN, URINE AUTO NEGATIVE (NEGATIVE); BLOOD, URINE BLOOD 1+ (NEGATIVE); GLUCOSE, URINE (UA) AUTO NEGATIVE (NEGATIVE); KETONE, URINE AUTO NEGATIVE (NEGATIVE); LEUKOCYTE ESTERASE, URINE AUTO 1+ (NEGATIVE); MUCUS, URINE SMALL (NEGATIVE); NITRITE, URINE AUTO NEGATIVE (NEGATIVE); PROTEIN, URINE AUTO NEGATIVE (NEGATIVE); RBC, URINE AUTO 3 /HPF (0-3); SPECIFIC GRAVITY URINE AUTO 1.016 (1.002-1.035); SQUAMOUS EPITHELIAL CELL UR AU 1 /HPF (0-6); UROBILINOGEN, URINE AUTO 0.2 mg/dL (0.0-2.0); WBC, URINE AUTO 2 /HPF (0-3)
== END ==
LOC: M LAB REF 17:20
PROVIDERS: ATTEND Physician Assistant Medical
DX: N39.0 Urinary tract infection, site not specified (principal)

== ENCOUNTER 2025-09-18 15:24 | Inpatient (IN) | payer MEDICARE ==
[~2025-09-18] VITALS: Ht 160 cm; Wt 48.2 kg
[2025-09-18 16:32] LABS: BASO # 0.1 10^3/uL (0.0-0.2); BASO % 0.7 % (0.0-1.0); EOS # 0.1 10^3/uL (0.0-0.5); EOS % 1.6 % (0.0-3.0); LYMPH # 1.8 10^3/uL (1.5-5.0); LYMPH % 26.5 % (24.0-44.0); MONO # 0.5 10^3/uL (0.0-0.8); MONO % 7.6 % (2.0-8.0); NEUTROPHILS # 4.4 10^3/uL (1.5-8.5); NEUTROPHILS % 63.5 % (36.0-66.0); PLATELET COUNT, AUTOMATED 336 10^3/uL (150-450)
[2025-09-18 16:58] LABS: ALT/SGPT 26 U/L (7.0-40); AST/SGOT 36 U/L (<34); C REACTIVE PROTEIN QUANTITATIV < 0.50 MG/DL (<1.0); CALCIUM LEVEL 9.3 MG/DL (8.3-10.6); CARBON DIOXIDE LEVEL 25 MMOL/L (20-31); CHLORIDE LEVEL 108 MMOL/L (98-107); CREATININE FOR GFR 0.65 MG/DL (0.55-1.30); GLOMERULAR FILTRATION RATE > 90.0 (>39); POTASSIUM SERUM 4.2 MMOL/L (3.5-5.1); SODIUM LEVEL 144 MMOL/L (136-145)
[2025-09-18] MEDS: NS 500 ML IV ONE (17:56)
[2025-09-18 18:26] LABS: KETONE, URINE AUTO RFX NEGATIVE (NEGATIVE); LEUKOCYTE ESTERASE UR AUTO RFX 3+ (NEGATIVE); MUCUS, URINE RFX SMALL (NEGATIVE); NITRITE, URINE AUTO RFX POSITIVE (NEGATIVE); RBC, URINE AUTO RFX 27 /HPF (0-3); SQUAM EPITHELIAL CELL UR AURFX 1 /HPF (0-6); TRANSITIONAL EPITHELIAL AU RFX 2 /HPF; WBC, URINE AUTO RFX 87 /HPF (0-3)
[2025-09-18] MEDS: CIPROFLOXACIN 400 MG in IV 1 EA IV ONE (20:38)
[2025-09-18] MEDS ORDERED: MOM 30 ML SUSPENSION UDC PO PRN (22:55)
[2025-09-18] MEDS ORDERED: EZET10TA57 PO (23:24)
[2025-09-18] MEDS ORDERED: VITA1TAB82 PO (23:24)
[2025-09-18] MEDS ORDERED: ACET-683 PO (23:24)
[2025-09-18] MEDS ORDERED: HOME MED LIST COMPLETE! XX SCH (23:25)
[2025-09-19 00:40] VITALS: BP 159/78; TEMP 97.3; O2SAT 100
[2025-09-19 04:00] VITALS: BP 134/68; TEMP 97; O2SAT 95
[2025-09-19 06:20] LABS: PLATELET COUNT, AUTOMATED 316 10^3/uL (150-450)
[2025-09-19 06:45] LABS: ALT/SGPT 26 U/L (7.0-40); AST/SGOT 34 U/L (<34); CALCIUM LEVEL 8.6 MG/DL (8.3-10.6); CARBON DIOXIDE LEVEL 26 MMOL/L (20-31); CHLORIDE LEVEL 108 MMOL/L (98-107); CREATININE FOR GFR 0.66 MG/DL (0.55-1.30); GLOMERULAR FILTRATION RATE > 90.0 (>39); POTASSIUM SERUM 3.9 MMOL/L (3.5-5.1); SODIUM LEVEL 143 MMOL/L (136-145)
[2025-09-19] MEDS ORDERED: OLANZapine 5 MG TAB PO PRN (08:05)
[2025-09-19] MEDS: ENOXAPARIN 40 MG/0.4 ML SYRINGE (J1650 PER 10MG) SC SCH (08:30)
[2025-09-19] MEDS: ASPIRIN 81 MG ENTERIC TABLET PO SCH (08:30)
[2025-09-19] MEDS: EZETIMIBE 10 MG TABLET PO SCH (08:30)
[2025-09-19] MEDS: DOCUSATE SODIUM 100 MG CAPSULE PO SCH (08:30)
[2025-09-19 12:00] VITALS: BP 132/69; TEMP 98.1; O2SAT 98
[2025-09-19] MEDS: cefTRIAXone SOD 1 GM in DEXTROSE 5% (D5W) ADV/MINI-BAG 50 ML IV SCH (13:06)
[2025-09-19] MEDS: ACETAMINOPHEN 325 MG TAB PO PRN (17:25)
[2025-09-19 19:52] VITALS: BP 112/58; TEMP 97.7; O2SAT 96
[2025-09-20 04:28] VITALS: BP 134/80; TEMP 97.9; O2SAT 99
[2025-09-20 06:36] LABS: BASO # 0.1 10^3/uL (0.0-0.2); BASO % 1.5 % (0.0-1.0); EOS # 0.2 10^3/uL (0.0-0.5); EOS % 3.4 % (0.0-3.0); LYMPH # 1.7 10^3/uL (1.5-5.0); LYMPH % 31.6 % (24.0-44.0); MONO # 0.4 10^3/uL (0.0-0.8); MONO % 7.8 % (2.0-8.0); NEUTROPHILS # 3.1 10^3/uL (1.5-8.5); NEUTROPHILS % 55.5 % (36.0-66.0); PLATELET COUNT, AUTOMATED 326 10^3/uL (150-450)
[2025-09-20 07:10] LABS: CALCIUM LEVEL 9.8 MG/DL (8.3-10.6); CARBON DIOXIDE LEVEL 25.0 MMOL/L (20-31); CHLORIDE LEVEL 109.0 MMOL/L (98-107); CREATININE FOR GFR 0.7 MG/DL (0.55-1.30); GLOMERULAR FILTRATION RATE 89.0 (>39); POTASSIUM SERUM 4.3 MMOL/L (3.5-5.1); SODIUM LEVEL 146.0 MMOL/L (136-145)
[2025-09-20] MEDS: ERTAPENEM SODIUM 1 GM in NS MINI-BAG PLUS 50 ML IV SCH (08:18)
[2025-09-20 12:00] VITALS: BP 137/81; TEMP 98.6; O2SAT 98
[2025-09-20] MEDS: OLANZapine 5 MG TAB PO SCH (16:58)
[2025-09-20 19:46] VITALS: BP 119/59; TEMP 97.3; O2SAT 96
[2025-09-21 04:00] VITALS: BP 135/72; TEMP 97.7; O2SAT 95
[2025-09-21 05:55] LABS: BASO # 0.1 10^3/uL (0.0-0.2); BASO % 1.1 % (0.0-1.0); EOS # 0.2 10^3/uL (0.0-0.5); EOS % 3.8 % (0.0-3.0); LYMPH # 1.9 10^3/uL (1.5-5.0); LYMPH % 29.9 % (24.0-44.0); MONO # 0.5 10^3/uL (0.0-0.8); MONO % 8.3 % (2.0-8.0); NEUTROPHILS # 3.6 10^3/uL (1.5-8.5); NEUTROPHILS % 56.7 % (36.0-66.0); PLATELET COUNT, AUTOMATED 329 10^3/uL (150-450)
[2025-09-21 06:25] LABS: CALCIUM LEVEL 8.8 MG/DL (8.3-10.6); CARBON DIOXIDE LEVEL 28.0 MMOL/L (20-31); CHLORIDE LEVEL 108.0 MMOL/L (98-107); CREATININE FOR GFR 0.73 MG/DL (0.55-1.30); GLOMERULAR FILTRATION RATE 84.7 (>39); POTASSIUM SERUM 4.3 MMOL/L (3.5-5.1); SODIUM LEVEL 144.0 MMOL/L (136-145)
[2025-09-21] MEDS: BACTRIM SUSP 160MG/800MG PER 20ML ORAL SYRINGE PO SCH (08:39)
[2025-09-21] MEDS ORDERED: OLAN1TAB16 PO (11:04)
[2025-09-21] MEDS ORDERED: OLAN5ZYD PO (11:04)
[2025-09-21] MEDS ORDERED: SULF200S26 PO (11:04)
[2025-09-21 12:00] VITALS: BP 135/75; TEMP 98.8; O2SAT 98
== END 2025-09-21 15:56 | disposition home or self-care (01) | DRG 689 ==
LOC: EDSEX 15:24 → EDBD 15:24 → M ED 15:24 → M ED INP 15:25 → EEVIPCON 15:25 → M MSPAV 09-19 00:38 → OBSVTOIN 09-20 12:25
PROVIDERS: ADMIT Student in an Organized Health Care Education/Training Program; ATTEND Internal Medicine Nephrology
DX: N39.0 Urinary tract infection, site not specified (principal); G93.41 Metabolic encephalopathy; F01.511 Vascular dementia, unspecified severity, with agitation; E46 Unspecified protein-calorie malnutrition; F02.811 Dementia in other diseases classified elsewhere, unspecified severity, with agitation; Z68.1 Body mass index [BMI] 19.9 or less, adult; M19.041 Primary osteoarthritis, right hand; M79.89 Other specified soft tissue disorders; B96.20 Unspecified Escherichia coli [E. coli] as the cause of diseases classified elsewhere; G25.0 Essential tremor; M81.0 Age-related osteoporosis without current pathological fracture; F41.9 Anxiety disorder, unspecified; G30.9 Alzheimer's disease, unspecified; K21.9 Gastro-esophageal reflux disease without esophagitis; R54 Age-related physical debility; R63.6 Underweight; Z79.82 Long term (current) use of aspirin; Z79.899 Other long term (current) drug therapy; Z88.1 Allergy status to other antibiotic agents; Z88.8 Allergy status to other drugs, medicaments and biological substances; Z86.73 Personal history of transient ischemic attack (TIA), and cerebral infarction without residual deficits; Z96.642 Presence of left artificial hip joint